=== PATIENT | male | born 1985 | race African-American/Black ===

== ENCOUNTER 2019-03-03 13:11 | Emergency (ER) | payer OTHER ==
[~2019-03-03] VITALS: Ht 175.3 cm; Wt 90.0 kg
[2019-03-03 14:48] VITALS: BP 148/80
== END 2019-03-03 15:23 | disposition left against medical advice (07) ==
LOC: ER 13:11
DX: Z53.21 Procedure and treatment not carried out due to patient leaving prior to being seen by health care provider (principal)